=== PATIENT | female | born 1955 | race Caucasian/White ===

== ENCOUNTER → 2016-06-08 | Outpatient (CLI) | payer OTHER | LOC: OPONC 11:49 → NUC 11:57 | DX: N95.9 Unspecified menopausal and perimenopausal disorder (principal) ==

== ENCOUNTER → 2017-05-06 | Outpatient (CLI) | payer OTHER ==
[~2017-05-06] VITALS: Ht 152.4 cm; Wt 44.0 kg
[~2017-05-06] MED LIST: CELEBREX 200 M200 M1 PO; CLARITIN10 MG PO; FISH OIL 1,001000 M2 PO; HAIR, SKIN & N1 EAC3 PO; PROGESTERONE100 MG PO; SINGULAIR 10 MG10 M1 PO; SPIRONOLACTONE100 M1 PO; VITAMIN D-32000 UNIT PO; VOLTAREN GEL 1100 G2 TOP
--- NOTE | ~2017-05-06 | P ---
[facility] [place] [address] PROCEDURE REPORT Name: HILARIO JOHN Room #: [facility].#: [id number] Admission: 05/06/17 Attend Phys: Radames Woods MD Discharge: Date of : 59 Report #: [id number] THIS REPORT FOR: //name// CC: Radames Siegel MD BRIEF HISTORY: The patient is a 62-year-old woman with family history of colorectal cancer. Brother at age 60. Another brother has had colon polyps. PREOPERATIVE DIAGNOSIS: Family history of colon cancer and family history of colon polyps. POSTOPERATIVE DIAGNOSIS: Normal endoscopic examination of the colon. MEDICATIONS: Deep sedation with propofol per anesthesia. SPECIMEN: None. ESTIMATED BLOOD LOSS: None. PROCEDURE: Colonoscopy to cecum and terminal ileum. FINDINGS: Prior to propofol sedation, procedure of colonoscopy discussed with the patient as well as potential risks and its complications. She indicates she understands and desires to proceed. DESCRIPTION OF PROCEDURE: With the patient in left lateral decubitus position, digital examination was completed which revealed no abnormalities. Subsequently, Olympus video colonoscope was introduced in the rectum, advanced under direct vision to the cecum. The cecum was identified by the ileocecal valve and appendiceal orifice. I was able to advance the tip of the scope into the mouth of the ileocecal valve, but due to looping could not cross the ileocecal valve. A normal villous pattern was seen. At that point, the scope was slowly withdrawn and careful circumferential views were obtained. The prep was excellent. Mucosa normal limits, normal vascular pattern, normal light reflex. As we withdrew the scope, she had normal colonic mucosa throughout. No evidence of inflammatory disease or neoplastic disease. No polyps were seen on this examination. She had normal mucosa throughout the colon. The scope was withdrawn all the way through the colon and into the rectum and no abnormalities were seen. Upon retroflexion, no abnormalities were seen. Scope was withdrawn. The patient tolerated the procedure well. CONDITION OF THE PATIENT UPON DISCHARGE: Following procedure, the patient drowsy, aroused, conversant and will be discharged home when fully ambulatory. INSTRUCTIONS TO THE PATIENT AND FAMILY AT THE TIME OF DISCHARGE: No neoplastic [facility] [address] [place] [address] PROCEDURE REPORT Name: HILARIO JOHN Room #: [facility].#: [id number] Admission: 05/06/17 Attend Phys: Radames Woods MD Discharge: Date of : 59 Report #: [id number] lesions were seen. Due to family history of colon cancer, I suggest return in 5 years for followup colonoscopy. Suggest high-fiber diet. She will return to the care of Dr. Urbano Siegel, return to see me as needed. Last colonoscopy was about 4-1/2 years ago. Withdrawal time from cecum was 10 minutes 27 seconds. <ELECTRONICALLY SIGNED> By: Radames Woods MD 05/06/17 [id number] Radames Woods MD /[email or web address]
== END ==
LOC: GI 07:00
DX: Z12.11 Encounter for screening for malignant neoplasm of colon (principal); Z80.0 Family history of malignant neoplasm of digestive organs; Z98.890 Other specified postprocedural states; Z88.0 Allergy status to penicillin; Z79.899 Other long term (current) drug therapy
CPT/HCPCS: 62110; 62900